=== PATIENT | male | born 1960 | race Caucasian/White ===

== ENCOUNTER → 2016-10-19 | Outpatient (CLI) | payer BC ==
[~2016-10-19] MED LIST: ADVIL200 MG PO; AMOXICILLIN 50500 MG PO; ASPIRIN 81M81 MG/TA2 PO; IBUPROFEN200 MG PO; LIVALO1 MG PO; MOTRIN 800800 MG/TAB PO; NORCO 325 MG-7.1 TAB PO; TRIAMCINOLONE AC0.13 TOP
[2016-10-19 12:10] LABS: HEMATOCRIT 44.2 % (42.0-52.0); HEMOGLOBIN 14.6 g/dl (13.5-18.0); MEAN CELL VOLUME 90 fl (80.0-100.0); MEAN CORPUSCULAR HEMOGLOBIN 30 pg (27.0-31.0); MEAN CORPUSCULAR HGB CONC 33 g/dl (33.0-37.0); MEAN PLATELET VOLUME 11.1 fl (7.4-10.4); PLATELET COUNT 222 K/mm3 (130-400); RED BLOOD COUNT 4.93 M/mm3 (4.20-5.60); REDCELL DISTRIBUTION WIDTH-CV 13.3 % (11.5-14.5); WHITE BLOOD COUNT 9.6 K/mm3 (4.8-10.8)
[2016-10-19 12:14] LABS: ADD PATHOLOGY DIFF REVIEW NO
[2016-10-19 12:25] LABS: C-REACTIVE PROTEIN 3.1 mg/dL (0.0-0.9); CREATININE, serum 1.23 mg/dL (0.66-1.25); POTASSIUM 4.2 mmol/L (3.4-5.0)
[2016-10-19 12:39] LABS: ERYTHROCYTE SEDIMENTATION RATE 1 mm/hr (0-30)
[2016-10-19 13:01] LABS: BAND 14 % (0-10); EOSINOPHIL 1 % (0-4); METAMYELOCYTE 2 % (0-0); MYELOCYTE 2 % (0-0); NEUTROPHILS 64 % (42.0-75.2); PLATELET ESTIMATE NORMAL (NORMAL); TOTAL CELLS COUNTED 100
[2016-10-19 14:25] LABS: URIC ACID 4.6 mg/dL (3.5-8.5)
== END ==
LOC: COL.LAB 10:23
PROVIDERS: Family Medicine
DX: M70.21 Olecranon bursitis, right elbow (principal)

== ENCOUNTER → 2018-08-04 | Outpatient (CLI) | payer BC | LOC: COL.RAD 10:20 | DX: M51.26 Other intervertebral disc displacement, lumbar region (principal) ==

== ENCOUNTER → 2018-09-23 | Outpatient (CLI) | payer BC | LOC: COL.RAD 13:00 | DX: M25.552 Pain in left hip (principal) | CPT/HCPCS: J3301; Q9967 ==

== ENCOUNTER → 2018-12-06 | Outpatient (CLI) | payer BC | LOC: COL.RAD 12:42 | DX: M25.552 Pain in left hip (principal) | CPT/HCPCS: J3301; Q9967 ==

== ENCOUNTER → 2019-03-01 | Outpatient (CLI) | payer BC | LOC: MHCPAIN 08:36 | DX: G89.29 Other chronic pain (principal); M47.817 Spondylosis without myelopathy or radiculopathy, lumbosacral region; M54.16 Radiculopathy, lumbar region; M53.3 Sacrococcygeal disorders, not elsewhere classified | CPT/HCPCS: G0463 ==

== ENCOUNTER → 2019-03-03 | Outpatient (CLI) | payer BC | LOC: MHCPAIN 07:44 | DX: M47.817 Spondylosis without myelopathy or radiculopathy, lumbosacral region (principal); M54.16 Radiculopathy, lumbar region | CPT/HCPCS: J1100; Q9967 ==

== ENCOUNTER 2019-04-12 19:03 | Emergency (ER) | payer BC ==
[~2019-04-12] VITALS: Ht 177.8 cm; Wt 90.9 kg
[2019-04-12] MEDS ORDERED: ASPIRIN 81M81 MG/TA2 PO (19:17)
[2019-04-12 21:31] VITALS: BP 121/76; PULSE 54; TEMP 98.4
== END 2019-04-12 21:33 | disposition home or self-care (01) ==
LOC: COL.ER 19:03
DX: S60.221A Contusion of right hand, initial encounter (principal); S80.01XA Contusion of right knee, initial encounter; Z79.82 Long term (current) use of aspirin; Z87.442 Personal history of urinary calculi; W55.22XA Struck by cow, initial encounter; Y92.009 Unspecified place in unspecified non-institutional (private) residence as the place of occurrence of the external cause

== ENCOUNTER → 2020-01-02 | Outpatient (CLI) | payer BC | LOC: COL.RAD 09:30 | DX: M16.11 Unilateral primary osteoarthritis, right hip (principal); S73.192A Other sprain of left hip, initial encounter | CPT/HCPCS: A9585; J3301; Q9967 ==

== ENCOUNTER → 2020-10-10 | Outpatient (CLI) | payer BC ==
[~2020-10-10] MED LIST changes: +PROTONIX20 MG PO; +ZETIA 10MG TAB10 MG PO
== END ==
LOC: COL.RAD 07:56
DX: M16.12 Unilateral primary osteoarthritis, left hip (principal)
CPT/HCPCS: J3301; Q9967

== ENCOUNTER 2020-11-09 07:55 | Day surgery (SDC) | payer BC ==
[~2020-11-09] VITALS: Ht 177.8 cm; Wt 93.9 kg
[~2020-11-09 07:55] MED LIST changes: -PROTONIX20 MG PO; -ZETIA 10MG TAB10 MG PO
[2020-11-09] MEDS ORDERED: ZETIA 10MG TAB10 MG PO (08:33)
[2020-11-09] MEDS ORDERED: PROTONIX20 MG PO (08:33)
[2020-11-09 08:34] VITALS: BP 139/100; PULSE 59; TEMP 98.4
[2020-11-09 10:20] VITALS: BP 110/86; PULSE 65
--- NOTE | 2020-11-09 10:20 | NUR ---
Patient returns to advance 9 per cart and transfers from cart to recliner with on person assist. IV fluids infusing. Temp 97.8 and room air sats 94%. Denies nausea or difficulty swallowing. Given blueberry muffin and grape juice to drink. Spouse in room and call light in reach.
--- NOTE | 2020-11-09 10:25 | NUR ---
Dr. Hoang here to talk with the patient and all questions answered.
[2020-11-09 10:35] VITALS: BP 117/84; PULSE 59
--- NOTE | 2020-11-09 10:35 | NUR ---
Resting and tolerates muffin.
[2020-11-09 10:50] VITALS: BP 111/88; PULSE 56
--- NOTE | 2020-11-09 10:50 | NUR ---
IV discontinued and patient dresses self. Room air sats 94%.
--- NOTE | 2020-11-09 10:54 | NUR ---
Dismissal instructions given and voices understanding of these.
--- NOTE | 2020-11-09 10:59 | NUR ---
Discharged to home driven by spouse and taken to the front door per wheelchair and assisted into vehicle with instructions in hand.
== END 2020-11-09 10:59 | disposition home or self-care (01) ==
LOC: SDCO 07:55
DX: K21.00 Gastro-esophageal reflux disease with esophagitis, without bleeding (principal); K29.70 Gastritis, unspecified, without bleeding; K22.4 Dyskinesia of esophagus; E78.5 Hyperlipidemia, unspecified; Z79.82 Long term (current) use of aspirin; Z79.899 Other long term (current) drug therapy; Z82.49 Family history of ischemic heart disease and other diseases of the circulatory system
CPT/HCPCS: J7030

== ENCOUNTER → 2021-01-04 | Outpatient (CLI) | payer BC ==
[~2021-01-04] MED LIST changes: +PROTONIX20 MG PO; +ZETIA 10MG TAB10 MG PO
== END ==
LOC: COL.RAD 08:27
DX: M16.12 Unilateral primary osteoarthritis, left hip (principal)
CPT/HCPCS: J3301; Q9967

== ENCOUNTER 2021-10-16 15:02 | Emergency (ER) | payer BC ==
[~2021-10-16] VITALS: Ht 177.8 cm; Wt 95.5 kg
[2021-10-16 15:15] VITALS: TEMP 98.2
[2021-10-16 15:37] LABS: COLLECTION METHOD CLEAN CATCH
[2021-10-16 15:41] LABS: BASO # 0.1 K/mm3 (0.0-0.2); BASO % 0.6 % (0.0-2.0); EOS # 0.1 K/mm3 (0.0-0.7); EOS % 0.7 % (0.0-4.0); GRAN # 8.2 K/mm3 (1.4-6.5); HEMATOCRIT 43.5 % (42.0-52.0); HEMOGLOBIN 14.2 g/dl (13.5-18.0); LYMPH # 1.4 K/mm3 (1.2-3.4); LYMPH % 12.7 % (20.0-51.0); MEAN CELL VOLUME 88 fl (80.0-100.0); MEAN CORPUSCULAR HEMOGLOBIN 29 pg (27-31); MEAN CORPUSCULAR HGB CONC 33 g/dl (33.0-37.0); MEAN PLATELET VOLUME 10.1 fl (7.4-10.4); MONO % 9.5 % (1.7-9.3); PLATELET COUNT 250 K/mm3 (130-400); RED BLOOD COUNT 4.92 M/mm3 (4.20-5.60); REDCELL DISTRIBUTION WIDTH-CV 14.4 % (11.5-14.5)
[2021-10-16 16:05] LABS: MUCOUS Present (NOT PRESENT); PH 5 (5-8); SQUAMOUS EPITHELIAL None Seen /hpf (0-10); URINE APPEARANCE Clear (CLEAR/HAZY); URINE BACTERIA None Seen /hpf (NONE SEEN); URINE BILIRUBIN Negative (NEGATIVE); URINE BLOOD 3+ (NEGATIVE); URINE COLOR Yellow (YELLOW); URINE GLUCOSE Negative (NEGATIVE); URINE KETONE Negative (NEGATIVE); URINE LEUKOCYTE ESTERASE Negative (NEGATIVE); URINE NITRATE Negative (NEGATIVE); URINE PROTEIN(semi-quant) Negative (NEGATIVE); URINE RBC >50 /hpf (0-2); URINE UROBILINOGEN Negative (NEGATIVE)
[2021-10-16 16:10] LABS: ALBUMIN 3.7 gm/dL (3.4-4.8); BILIRUBIN,TOTAL 0.3 mg/dL (0.2-1.2); C-REACTIVE PROTEIN 0.34 mg/dL (0.00-0.50); CALCIUM 8.7 mg/dL (8.4-10.2); CREATININE, serum 1.03 mg/dL (0.72-1.25); POTASSIUM 3.9 mmol/L (3.5-4.5); TOTAL PROTEIN 6.7 gm/dL (6.2-8.1)
[2021-10-16] MEDS ORDERED: ZOFRAN ODT4 MG PO (16:48)
[2021-10-16] MEDS ORDERED: PERCOCET 325 MG1 TA2 PO (16:48)
[2021-10-16 17:15] VITALS: BP 132/75; PULSE 88
[2021-10-16] MEDS ORDERED: FLOMAX 0.40.4 MG/CAP PO (17:18)
== END 2021-10-16 17:18 | disposition home or self-care (01) ==
LOC: COL.ER 15:02
PROVIDERS: Physician Assistant
DX: N23 Unspecified renal colic (principal); Z87.442 Personal history of urinary calculi
CPT/HCPCS: J2270; J2405; J7030

== ENCOUNTER 2023-05-30 16:51 | Emergency (ER) | payer BC ==
[~2023-05-30] VITALS: Ht 177.8 cm; Wt 90.9 kg
[~2023-05-30 16:51] MED LIST changes: +FLEXERIL 1010 MG/TAB PO; +FLOMAX 0.40.4 MG/CAP PO; +PERCOCET 325 MG1 TA2 PO; +ZOFRAN ODT4 MG PO
[2023-05-30 16:55] VITALS: BP 105/49; TEMP 98
[2023-05-30 18:18] VITALS: PULSE 72
== END 2023-05-30 18:18 | disposition home or self-care (01) ==
LOC: COL.ER 16:51
DX: M25.562 Pain in left knee (principal); W18.40XA Slipping, tripping and stumbling without falling, unspecified, initial encounter
CPT/HCPCS: L1830; L1846

== ENCOUNTER 2024-03-04 20:51 | Observation (INO) | payer BC ==
[~2024-03-04] VITALS: Ht 177.8 cm; Wt 94.0 kg
[2024-03-04 22:58] LABS: COLLECTION METHOD CLEAN CATCH
[2024-03-04 23:04] LABS: BASO # 0.1 K/mm3 (0.0-0.2); BASO % 0.5 % (0.0-2.0); EOS # 0.1 K/mm3 (0.0-0.7); EOS % 0.5 % (0.0-4.0); GRAN # 10.4 K/mm3 (1.4-6.5); HEMATOCRIT 47.8 % (42.0-52.0); HEMOGLOBIN 15.6 g/dl (13.5-18.0); LYMPH # 1.2 K/mm3 (1.2-3.4); LYMPH % 9.2 % (20.0-51.0); MEAN CELL VOLUME 91 fl (80.0-100.0); MEAN CORPUSCULAR HEMOGLOBIN 30 pg (27-31); MEAN CORPUSCULAR HGB CONC 33 g/dl (33.0-37.0); MEAN PLATELET VOLUME 10.5 fl (7.4-10.4); MONO # 0.8 K/mm3 (0.1-0.6); MONO % 6.5 % (1.7-9.3); PLATELET COUNT 286 K/mm3 (130-400); RED BLOOD COUNT 5.28 M/mm3 (4.20-5.60); REDCELL DISTRIBUTION WIDTH-CV 13.6 % (11.5-14.5)
[2024-03-04 23:10] LABS: PH 5.5 (5.0-8.5); URINE APPEARANCE CLOUDY (CLEAR/HAZY); URINE BLOOD 3+ (NEGATIVE); URINE COLOR YELLOW (YELLOW); URINE GLUCOSE NEGATIVE (NEGATIVE); URINE KETONE TRACE (NEGATIVE); URINE NITRATE NEGATIVE (NEGATIVE); URINE PROTEIN(semi-quant) 1+ (NEGATIVE)
[2024-03-04] MEDS ORDERED: Morphine 4 MG/ML VIAL IV ONE (23:15)
[2024-03-04] MEDS ORDERED: NS 1,000 ML IV ONE (23:15)
[2024-03-04] MEDS ORDERED: Iohexol 300 - 100 ML VIAL IV ONE (23:16)
[2024-03-04] MEDS ORDERED: NS 50 ML IV SCH (23:16)
[2024-03-04 23:20] LABS: ALBUMIN 4.2 g/dL (3.4-4.8); BILIRUBIN,TOTAL 0.5 mg/dL (0.2-1.2); CALCIUM 9.8 mg/dL (8.4-10.2); CREATININE, serum 1.14 mg/dL (0.72-1.25); TOTAL PROTEIN 7.9 g/dl (6.2-8.1)
[2024-03-05] VITALS (9 sets, daily range): BP systolic 115–157; BP diastolic 71–91; PULSE 55–86; TEMP 97.9–98.4
[2024-03-05] MEDS ORDERED: Ondansetron 4 MG/2 ML VIAL IV PRN ×2 (01:15→03:00)
[2024-03-05] MEDS ORDERED: NS 1,000 ML IV SCH ×2 (01:15→11:30)
[2024-03-05] MEDS ORDERED: Morphine 4 MG/ML VIAL IV PRN ×2 (01:15→03:00)
[2024-03-05] MEDS ORDERED: VIVLODEX5 MG PO (02:00)
--- NOTE | 2024-03-05 03:00 | NUR ---
PT ADMITTED TO ROOM 329 FROM ED PER WC, ON RA, VSS. REPORTS PAIN RELIEVED WITH MORPHINE GIVEN IN ED, IV IN LAC WITH IVF INFUSING @ 125CC/HR. PT AMBULATORY WITHOUT ASSISTANCE NEEDED. ORIENTED TO ROOM, FLOOR AND POC.
[2024-03-05] MEDS ORDERED: LR 1,000 ML IV SCH (04:00)
[2024-03-05] MEDS ORDERED: oxyCODONE/Acetaminophen 5-325 MG TAB PO PRN (04:00)
[2024-03-05] MEDS ORDERED: HYDROmorphone 0.5 MG/0.5 ML SYRINGE IV PRN (04:00)
[2024-03-05 08:29] LABS: BASO # 0.1 K/mm3 (0.0-0.2); BASO % 0.7 % (0.0-2.0); EOS # 0.1 K/mm3 (0.0-0.7); EOS % 1.6 % (0.0-4.0); GRAN # 4.8 K/mm3 (1.4-6.5); GRAN % 64.6 % (42.2-75.2); HEMATOCRIT 42.4 % (42.0-52.0); LYMPH # 1.5 K/mm3 (1.2-3.4); LYMPH % 20.5 % (20.0-51.0); MEAN CELL VOLUME 90 fl (80.0-100.0); MEAN CORPUSCULAR HEMOGLOBIN 30 pg (27-31); MEAN CORPUSCULAR HGB CONC 33 g/dl (33.0-37.0); MEAN PLATELET VOLUME 10.7 fl (7.4-10.4); MONO # 0.9 K/mm3 (0.1-0.6); MONO % 12.3 % (1.7-9.3); PLATELET COUNT 252 K/mm3 (130-400); RED BLOOD COUNT 4.71 M/mm3 (4.20-5.60); REDCELL DISTRIBUTION WIDTH-CV 13.9 % (11.5-14.5)
[2024-03-05 08:46] LABS: ALBUMIN 3.3 g/dL (3.4-4.8); BILIRUBIN,TOTAL 0.6 mg/dL (0.2-1.2); CALCIUM 8.6 mg/dL (8.4-10.2); CREATININE, serum 0.96 mg/dL (0.72-1.25); POTASSIUM 3.9 mEq/L (3.5-4.5); TOTAL PROTEIN 6.3 g/dl (6.2-8.1)
--- NOTE | 2024-03-05 10:24 | NUR ---
BACK AT BEDSIDE, AFTER VIEWING SCAN WITH RADIOLOGIST HE IS IN SPEAKING WITH PATIENT & . SEE CONSULT FOR KIDNEY STONES, NOTIFIED.
[2024-03-05] MEDS ORDERED: Amoxicillin/Clavulanate K+ 875/125 MG TAB PO SCH ×2 (10:37→17:00)
[2024-03-05] MEDS ORDERED: AMOXICILLIN 8751 TAB PO (10:39)
--- NOTE | 2024-03-05 10:57 | NUR ---
NOTIFIED OF CONSULT, PLAN IS TO KEEP PATIENT NPO AND INCREASE IV FLUIDS, SEE MAR. POSSIBLE OR LATER TODAY.
--- NOTE | 2024-03-05 12:49 | NUR ---
Data: Patient and accepted spiritual care visit offered during Security Agent rounds. had a medical procedure of her own yesterday at a different hospital. Both reflected on their small baptism and its future. Assessment: Positive and hopeful attitudes. Plan of Care: Security Agent offered supportive listening an a prayer for healing and for the future of their baptism. Both thanked Security Agent. Chaplains will remain available as needed/requested while Patient is admitted to this hospital.
--- NOTE | 2024-03-05 13:55 | NUR ---
SPOKE WITH , SEE ORDERS FOR REPEAT KUB. PATIENT GOING DOWN TO RADIOLOGY
--- NOTE | 2024-03-05 17:00 | NUR ---
PATIENT ATE & DRANK AND READY TO DISCHARGE. PATIENT AND EXPRESSED THEY ARE DISAPPOINTED WE WERE UNABLE TO DO THE LITHOTRIPSY TODAY, PLAN IS TO FOLLOW UP OUTPATIENT. GAVE DISCHARGE INSTRUCTIONS, E-SCRIPT SENT TO PHARMACY, AND DISCUSSED F/U WITH UROLOGY. ANSWERED QUESTIONS/CONCERNS. DC'D LEFT AC IV AND COVERED SITE WITH GAUZE & COBAN. PATIENT IS DRESSED, PACKED AND DISCHARGED TO PERSONAL VEHICLE WITH .
== END 2024-03-05 17:00 | disposition home or self-care (01) ==
LOC: COL.ER 20:51 → SURG 03-05 01:16
PROVIDERS: Physician Assistant; ADMIT Surgery
DX: N13.2 Hydronephrosis with renal and ureteral calculous obstruction (principal)
CPT/HCPCS: G0378; J2270; J2543; J7030; Q9967